=== PATIENT | male | born 1950 | race Caucasian/White ===

== ENCOUNTER 2018-04-26 15:24 | Day surgery (SDC) | payer MEDICARE ==
[~2018-04-26] VITALS: Ht 175.3 cm; Wt 176.4 kg
[~2018-04-26 15:24] MED LIST: ALEVE 220MG220 MG PO; ASPIRIN 32325 MG/TAB PO; CEPHALEXIN500 M1 PO; COREG12.5 MG PO; DETROL LA4 PO; DULCOLAX10 MG RC; FERROUS SU325 MG/TAB PO; FLOMAX 0.40.4 MG/CAP PO; FOLIC ACID 40400 MCG PO; METAMUCIL1 PDR PO; MULTIPLE VITAMI1 CAP PO; NORCO 325 MG-7.1 TAB PO; RAPAFLO8 MG PO; SENOKOT8.6 MG PO; VITAMIN C500 MG PO; XARELTO10 MG PO
[2018-04-26 16:10] VITALS: BP 178/71; PULSE 68; TEMP 97.5
[2018-04-26] MEDS ORDERED: NORCO 325 MG-7.1 TAB PO (16:29)
[2018-04-26] MEDS ORDERED: COUMADIN 22.5 MG/TAB PO (16:30)
[2018-04-26 19:45] VITALS: BP 161/82; PULSE 63; TEMP 97.6
--- NOTE | 2018-04-26 19:45 | NUR ---
Received patient from PACU per bed. Up immediately to bathroom to void. Patient is alert and oriented. Family at bedside.
[2018-04-26 20:00] VITALS: BP 176/87; PULSE 65
--- NOTE | 2018-04-26 20:10 | NUR ---
Patient assisted to bed. VSS. Tries jello and pudding without nausea. Family brings up food from [employer], eats without problem. IVF capped to left wrist. Reports burning with urination, urine is blood tinged.
[2018-04-26 20:15] VITALS: BP 164/79; PULSE 62
[2018-04-26 20:30] VITALS: BP 168/82; PULSE 65
--- NOTE | 2018-04-26 21:20 | NUR ---
Patient ready to go home. Denies pain, has voided and eaten without problem. IV site dc'd, angiocath intact. Reviewed discharge instructions with patient and spouse. Getting dressed at this time.
--- NOTE | 2018-04-26 21:45 | NUR ---
Taken via w/c to private car, personal belongings sent with patient as well as copy of discharge instructions.
== END 2018-04-26 21:45 | disposition home or self-care (01) ==
LOC: SDCO 15:24 → SURG 19:43 → SDCO 21:45
DX: N20.1 Calculus of ureter (principal); Z87.442 Personal history of urinary calculi; I10 Essential (primary) hypertension; E66.01 Morbid (severe) obesity due to excess calories; Z68.43 Body mass index [BMI] 50.0-59.9, adult; Z80.9 Family history of malignant neoplasm, unspecified; Z82.49 Family history of ischemic heart disease and other diseases of the circulatory system; I48.91 Unspecified atrial fibrillation; Z86.711 Personal history of pulmonary embolism; Z79.01 Long term (current) use of anticoagulants; M48.00 Spinal stenosis, site unspecified; N40.0 Benign prostatic hyperplasia without lower urinary tract symptoms; G47.33 Obstructive sleep apnea (adult) (pediatric); Z79.82 Long term (current) use of aspirin; Z96.653 Presence of artificial knee joint, bilateral
CPT/HCPCS: OP; C1769; J0690; J1100; J2405; J2704; J3010; J7120; Q9967

== ENCOUNTER 2020-08-03 14:52 | Observation (INO) | payer MEDICARE ==
[~2020-08-03] VITALS: Ht 175.3 cm; Wt 168.1 kg
[~2020-08-03 14:52] MED LIST changes: +COUMADIN 22.5 MG/TAB PO; +COUMADIN 5MG5 MG/TAB PO; +METAMUCIL3.4 GM/DOS PO; +PROBIOTIC BLEN1 EACH PO; +PROBIOTIC FORMU1 CAP PO; +TYLENOL 500MG500 MG PO
[2020-08-03] MEDS ORDERED: UROCIT-K 5540 MG/TAB PO (15:12)
[2020-08-03 15:13] VITALS: BP 144/77; PULSE 80; TEMP 99
--- NOTE | 2020-08-03 15:33 | NUR ---
brought to unit per WC at 1500, OR nurse notified patient had arrived, will prep for surgery, admission assessment and intake completed, preop checklist and med reconcilliation completed, INT to right forearm from previous facility, consent signed and he is ready for surgery, report given to Amada RN and to surgery per bed,
[2020-08-03 16:50] VITALS: BP 128/57; PULSE 71; TEMP 99
--- NOTE | 2020-08-03 16:50 | NUR ---
returned from surgery per bed, awake and alert, IV infusing per gravity to right forearm, assisted up to bathroom and voided small amount blood tinged urine, then back into bed, at bedside
[2020-08-03 17:00] VITALS: BP 161/65; PULSE 68
--- NOTE | 2020-08-03 17:00 | NUR ---
provided ice water and takes without nausea
[2020-08-03 17:15] VITALS: BP 141/64; PULSE 71
--- NOTE | 2020-08-03 17:15 | NUR ---
had water and tolerated well, provided sandwich box and if tolerates will plan discharge
[2020-08-03 17:30] VITALS: BP 130/46; PULSE 71
--- NOTE | 2020-08-03 17:30 | NUR ---
tolerated sandwich and applesauce and wants to go home, IV fluids disconected, will get up to bathroom and then get dressed for discharge
--- NOTE | 2020-08-03 17:55 | NUR ---
discharge instructions given to patient and hs , verbalizes understanding
--- NOTE | 2020-08-03 18:00 | NUR ---
discharged per WC
== END 2020-08-03 18:00 | disposition home or self-care (01) ==
LOC: SURG 14:52
PROVIDERS: ADMIT Urology
DX: N13.5 Crossing vessel and stricture of ureter without hydronephrosis (principal); N20.1 Calculus of ureter; I10 Essential (primary) hypertension; I48.91 Unspecified atrial fibrillation; N40.0 Benign prostatic hyperplasia without lower urinary tract symptoms; G47.33 Obstructive sleep apnea (adult) (pediatric); E66.01 Morbid (severe) obesity due to excess calories; C85.90 Non-Hodgkin lymphoma, unspecified, unspecified site; Z68.43 Body mass index [BMI] 50.0-59.9, adult; Z79.899 Other long term (current) drug therapy; Z79.01 Long term (current) use of anticoagulants; Z86.718 Personal history of other venous thrombosis and embolism; Z86.711 Personal history of pulmonary embolism
CPT/HCPCS: C1769; C2617; J0690; J2405; J2704; J3010; Q9967

== ENCOUNTER 2020-08-13 13:37 | Day surgery (SDC) | payer MEDICARE ==
[~2020-08-13] VITALS: Ht 175.3 cm; Wt 175.6 kg
[2020-08-13] VITALS (7 sets, daily range): BP systolic 158–196; BP diastolic 62–98; PULSE 60–84; TEMP 97.7–98.1
[~2020-08-13 13:37] MED LIST changes: +UROCIT-K 5540 MG/TAB PO
--- NOTE | 2020-08-13 14:42 | NUR ---
TO RM AT 1344- CALL LIGHT IN REACH AT BEDSIDE.
--- NOTE | 2020-08-13 17:58 | NUR ---
PT ARRIVED TO UNIT VIA STRETCHER. ASSISTED TO AMBULATE TO BATHROOM WITH STANDBY ASSIST. PT CONTINENT OF BOWEL AND BLADDER AT THIS TIME. ASSESSMENT COMPLETED, SEE ATTACHED NOTE.
--- NOTE | 2020-08-13 18:20 | NUR ---
ASSESSMENT COMPLETED, SEE NOTE. PT REPORTS PAIN 6/10 IN GROIN AREA HOWEVER DECLINES PAIN MEDICATION AT THIS TIME.
--- NOTE | 2020-08-13 21:52 | NUR ---
Patient received flomax and one time dose of toradol at begining of shift. Patient stated that the pressure had decreased, but did still have some pain. Had been able to urinate multiple times, some blood noted in urine, which patient was educated would be expected at this time. Patient able to eat supper, and stated he was ready to go at 1999. Went over patient discharge instructions and educational packets with patient at 2014. Patient given prescription for [place]. Patient requested pain medication prior to leaving, and given PRN Percocet for pain per orders. Patient's INT to left wrist taken out. [employer] employee assisted patient out via wheelchair, accompanied by , out of facility. Voiced no questions, needs, or concerns at discharge time, 2029.
== END 2020-08-13 20:30 | disposition home or self-care (01) ==
LOC: SDCO 13:37 → MEDICAL 17:52 → SDCO 20:30
DX: N20.2 Calculus of kidney with calculus of ureter (principal); I48.91 Unspecified atrial fibrillation; I10 Essential (primary) hypertension; G47.33 Obstructive sleep apnea (adult) (pediatric); M19.90 Unspecified osteoarthritis, unspecified site; E66.01 Morbid (severe) obesity due to excess calories; I26.99 Other pulmonary embolism without acute cor pulmonale; G47.30 Sleep apnea, unspecified; J32.9 Chronic sinusitis, unspecified; M48.00 Spinal stenosis, site unspecified; Z79.01 Long term (current) use of anticoagulants; Z99.89 Dependence on other enabling machines and devices; Z85.71 Personal history of Hodgkin lymphoma; Z79.899 Other long term (current) drug therapy
CPT/HCPCS: OP; C1769; C2617; J0690; J1885; J2405; J2704; J3010; J7120; Q9967